=== PATIENT | male | born 1955 | race Native Hawaiian/Other Pacific Islander ===

== ENCOUNTER 2016-12-25 10:20 | Inpatient (IN) | payer BC ==
[~2016-12-25] VITALS: Ht 172.7 cm; Wt 111.6 kg
[2016-12-25 10:48] VITALS: BP 122/66; TEMP 97.4; Ht 172.7 cm; Wt 111.6 kg
[2016-12-25] MEDS ORDERED: TAMS0.4C PO (11:03)
[2016-12-25] MEDS ORDERED: TRICOR145 MG PO (11:05)
[2016-12-25] MEDS ORDERED: ASPIRIN ADULT L81 MG PO (11:05)
[2016-12-25] MEDS ORDERED: FURO20TA67 PO (11:06)
[2016-12-25 12:03] LABS: PLATELET COUNT 213 K/uL (142-355)
[2016-12-25 12:05] LABS: POTASSIUM 3.4 mmol/L (3.6-5.2)
[2016-12-25 12:29] VITALS: BP 122/66; TEMP 97.4
[2016-12-25 15:59] VITALS: BP 119/70; TEMP 97.5
[2016-12-25 20:00] VITALS: BP 119/49; TEMP 98.2
[2016-12-26 00:20] VITALS: BP 115/69; TEMP 97.8
[2016-12-26 04:00] VITALS: BP 139/77; TEMP 97.9
[2016-12-26 07:30] LABS: PLATELET COUNT 228 K/uL (142-355)
[2016-12-26 08:00] VITALS: BP 144/76; TEMP 98.2; TEMP 98.6
[2016-12-26 08:03] LABS: POTASSIUM 3.9 mmol/L (3.6-5.2)
[2016-12-26 12:00] VITALS: BP 137/72; TEMP 98.4
[2016-12-26 16:01] VITALS: BP 132/58; TEMP 98.2
[2016-12-26 20:00] VITALS: BP 130/64; TEMP 97.9
[2016-12-27] VITALS (7 sets, daily range): BP systolic 101–146; BP diastolic 53–85; TEMP 97.4–98.6
[2016-12-27 05:03] LABS: PLATELET COUNT 251 K/uL (142-355)
[2016-12-27 05:16] LABS: SODIUM 141 mmol/L (136-145)
[2016-12-27 13:08] LABS: PARTIAL THROMBOPLASTIN TIME 26.5 SECONDS (24.5-33.6)
[2016-12-28 04:00] VITALS: BP 160/96; TEMP 97.8
[2016-12-28 06:14] LABS: POTASSIUM 3.8 mmol/L (3.6-5.2); SODIUM 145 mmol/L (136-145)
[2016-12-28 06:24] LABS: PLATELET COUNT 264 K/uL (142-355)
[2016-12-28 08:00] VITALS: BP 144/96; TEMP 97.9
[2016-12-28 12:00] VITALS: BP 146/84; TEMP 98.1
[2016-12-28 16:00] VITALS: BP 126/79; TEMP 97.8
[2016-12-28 20:12] VITALS: BP 132/72; TEMP 97.6
[2016-12-29 00:27] VITALS: BP 116/53; TEMP 97.9
[2016-12-29 04:10] VITALS: BP 417/77; TEMP 97.9
[2016-12-29 06:26] LABS: PLATELET COUNT 268 K/uL (142-355)
[2016-12-29 07:26] VITALS: BP 150/96; TEMP 98
[2016-12-29 08:02] LABS: POTASSIUM 3.4 mmol/L (3.6-5.2); SODIUM 139 mmol/L (136-145)
[2016-12-29 12:00] VITALS: BP 183/91; TEMP 98.1
== END 2016-12-29 14:30 | disposition home or self-care (01) | DRG 190 ==
LOC: MED/SURG 10:20
PROVIDERS: Family Medicine; Student in an Organized Health Care Education/Training Program; ADMIT Nurse Practitioner
DX: J44.0 Chronic obstructive pulmonary disease with (acute) lower respiratory infection (principal); J16.8 Pneumonia due to other specified infectious organisms; J20.9 Acute bronchitis, unspecified; E86.0 Dehydration; R73.9 Hyperglycemia, unspecified
CPT/HCPCS: 36600; 80048; 80053; 82040; 82550; 82805; 82948; 83735; 83880; 84484; 85027; 85379; 85610; 85730; 87040; 87804; 90658; 93005; 94640; 94664; 94760; 96360; 96361; 96367; 96372; 96375; J0456; J0712; J1650; J2920; J2930; Q9963

== ENCOUNTER 2017-01-29 22:52 | Emergency (ER) | payer BC ==
[~2017-01-29] VITALS: Ht 172.7 cm; Wt 111.1 kg
[~2017-01-29 22:52] MED LIST: ASPIRIN ADULT L81 MG PO; FURO20TA67 PO; TAMS0.4C PO; TRICOR145 MG PO
[2017-01-30] LABS: PLATELET COUNT 171 K/uL (142-355)
[2017-01-30 00:30] LABS: POTASSIUM 4.3 mmol/L (3.6-5.2)
[2017-01-30 01:03] VITALS: BP 132/88; TEMP 98.2
== END 2017-01-30 01:09 | disposition home or self-care (01) ==
LOC: ED 22:52
PROVIDERS: Emergency Medicine
DX: N23 Unspecified renal colic (principal)
CPT/HCPCS: 36415; 80053; 81000; 85027; 96374; 96375; 99284; J1885; J2405

== ENCOUNTER 2017-12-24 14:21 | Outpatient (CLI) | payer BC | END 2017-12-24 19:40 | disposition home or self-care (01) | LOC: RAD 14:21 | DX: M79.672 Pain in left foot (principal) ==

== ENCOUNTER 2019-03-16 11:47 | Outpatient (CLI) | payer BC | END 2019-03-16 23:11 | disposition home or self-care (01) | LOC: RAD 11:47 | DX: M25.532 Pain in left wrist (principal); M79.642 Pain in left hand ==